=== PATIENT | female | born 1985 | race Caucasian/White ===

== ENCOUNTER 2024-03-03 15:35 | Inpatient (IN) | payer BC ==
[2024-03-03 17:46] VITALS: BMI 20.4
[2024-03-03] MEDS ORDERED: NALOXONE (NARCAN) HCL 4 MG/0.1 ML SPRAY NS PRN (18:46)
[2024-03-03] MEDS ORDERED: POLYETHYLENE GLYCOL (HEALTHYLAX) 3350 17 GM PACKET PO PRN (18:46)
[2024-03-03] MEDS ORDERED: guaiFENesin 600 MG TABLET.ER (FP) PO PRN (18:46)
[2024-03-03] MEDS ORDERED: NALOXONE HCL 0.4 MG/ML VIAL IM PRN (18:46)
[2024-03-03] MEDS ORDERED: ONDANSETRON *ODT* 4 MG TABLET SL PRN (18:46)
[2024-03-03] MEDS ORDERED: IBUPROFEN 400 MG TABLET (FP) PO PRN (18:46)
[2024-03-03] MEDS ORDERED: BENZOCAINE/MENTHOL (CHLORASEPTIC ) LOZENGE MM PRN (18:46)
[2024-03-03] MEDS ORDERED: LOPERAMIDE HCL 2 MG CAPSULE PO PRN (18:46)
[2024-03-03] MEDS ORDERED: BENZONATATE 200 MG CAPSULE PO PRN (18:46)
[2024-03-03] MEDS ORDERED: BISMUTH SUBSALICYLATE 524 MG/30 ML PO PRN (18:46)
[2024-03-03] MEDS ORDERED: MAGNESIUM HYDROX 2400MG/30ML ORAL SUSPENSION 30 ML CUP PO PRN (18:46)
[2024-03-03] MEDS ORDERED: ALBUTEROL SO4 HFA INHALER IH PRN (18:52)
[2024-03-03] MEDS ORDERED: methaDONE HCL 10 MG TABLET (FOR DETOX USE ONLY) ONE (19:08)
[2024-03-03] MEDS: methaDONE HCL 10 MG TABLET (FOR DETOX USE ONLY) PO ONE (19:17)
[2024-03-03] MEDS: IBUPROFEN 600 MG TABLET (FP) PO PRN (20:22)
[2024-03-03] MEDS: METHOCARBAMOL 500 MG TABLET PO PRN (20:22)
[2024-03-03] MEDS: THIAMINE 100 MG TABLET PO SCH (22:52)
[2024-03-03] MEDS: MELATONIN 5 MG TABLETS PO SCH (22:53)
[2024-03-04] MEDS: ACETAMINOPHEN 325 MG TABLET (FP) PO PRN (01:46)
[2024-03-04] MEDS: DICYCLOMINE HCL 10 MG CAPSULE PO PRN (04:53)
[2024-03-04] MEDS: hydrOXYzine PAMOATE 25 MG CAPSULE (FP) PO PRN (04:53)
[2024-03-04] MEDS: MAG HYDROX/AL HYDROX/SIMETH 30 ML UNIT-DOSE CUP PO PRN (04:54)
[2024-03-04] MEDS: LIDOCAINE 5% TOPICAL PATCH TP SCH (09:41)
[2024-03-04] MEDS: PRENATAL VITAMINS W/ FOLIC ACID TABLET (FP) PO SCH (09:41)
[2024-03-04] MEDS: GABAPENTIN 100 MG CAPSULE PO SCH (14:21)
[2024-03-04] MEDS: cloNIDine HCL 0.1 MG TABLET PO PRN (14:21)
[2024-03-04] MEDS: diazePAM 5 MG TABLET PO PRN (17:48)
[2024-03-04 19:23] VITALS: RESP 17
[2024-03-04 19:49] VITALS: BP 140/83; PULSE 98; TEMP 97.5
[2024-03-04] MEDS: traZODone HCL 50 MG TABLET (FP) PO SCH (22:19)
[2024-03-04] MEDS: LIDOCAINE PATCH REMOVAL MC SCH (22:19)
[2024-03-05] MEDS ORDERED: methaDONE HCL 10 MG TABLET (FOR DETOX USE ONLY) PO ONE (10:00)
[2024-03-07] MEDS ORDERED: methaDONE HCL 10 MG TABLET (FOR DETOX USE ONLY) PO ONE (10:00)
== END 2024-03-05 00:30 | disposition short-term general hospital (02) | DRG 773 ==
LOC: YASAS 15:35 → Y6N 18:47
PROVIDERS: ADMIT Allergy & Immunology; ATTEND Surgery
PROC: HZ2ZZZZ Detoxification Services for Substance Abuse Treatment (ICD-10-PCS; principal; 2024-03-03)
DX: F11.23 Opioid dependence with withdrawal (principal); F14.20 Cocaine dependence, uncomplicated; F17.210 Nicotine dependence, cigarettes, uncomplicated; F31.9 Bipolar disorder, unspecified; F43.10 Post-traumatic stress disorder, unspecified; F19.982 Other psychoactive substance use, unspecified with psychoactive substance-induced sleep disorder; F19.980 Other psychoactive substance use, unspecified with psychoactive substance-induced anxiety disorder; I10 Essential (primary) hypertension; E11.9 Type 2 diabetes mellitus without complications; J45.909 Unspecified asthma, uncomplicated; L90.5 Scar conditions and fibrosis of skin; R50.9 Fever, unspecified; R63.0 Anorexia; E78.5 Hyperlipidemia, unspecified; I25.10 Atherosclerotic heart disease of native coronary artery without angina pectoris; Z21 Asymptomatic human immunodeficiency virus [HIV] infection status; Z86.19 Personal history of other infectious and parasitic diseases; Z56.0 Unemployment, unspecified; Z59.00 Homelessness unspecified
CPT/HCPCS: 0241U-QW; 36415; 71045-TC-FY; 72126-TC; 72129-TC; 72132-TC; 80053; 80305; 80307; 81003; 81025; 83735; 84703; 85025; 85610; 85651; 85730; 86140; 86850; 86900; 86901; 87040; 87077; 87081; 87086; 87186; 93005; 93010; 99285-25; J0131; Q9967

== ENCOUNTER 2024-03-04 20:27 | Emergency (ER) | payer BC ==
[2024-03-04 20:48] VITALS: RESP 18; BMI 20.4
[2024-03-04 21:37] LABS: HEMATOCRIT 41.2 % (32.4-45.2); HEMOGLOBIN 14.3 GM/dL (10.7-15.3); MCH 30.8 pg (25.7-33.7); MCHC 34.7 g/dl (32.0-36.0); MEAN CELL VOLUME 88.8 fl (80-96); MEAN PLT VOLUME 7.6 fl (7.5-11.1); PLATELET COUNT 215 10^3/uL (134-434); RBC 4.64 M/mm3 (3.60-5.2); WHITE BLOOD COUNT 16.8 K/mm3 (4.0-10.0)
[2024-03-04 21:49] LABS: INR 1.21 (0.83-1.09); PROTHROMBIN TIME (PATIENT) 13.6 SEC (9.7-13.0)
[2024-03-04 21:52] LABS: ACTIVATED PTT 27.2 SECONDS (25.2-36.5)
[2024-03-04 22:22] LABS: ERYTHROCYTE SEDIMENTATION RATE 48 mm/hr (0-20); POTASSIUM 3.3 mmol/L (3.5-5.1)
[2024-03-04 22:24] LABS: CALCIUM 8.8 mg/dL (8.5-10.1)
[2024-03-04 22:26] LABS: ALBUMIN 2.5 g/dl (3.4-5.0); BLOOD UREA NITROGEN 6.1 mg/dL (7-18); MAGNESIUM 1.7 mg/dL (1.8-2.4)
[2024-03-04 22:27] LABS: ANISOCYTOSIS 0; MACROCYTOSIS 0
[2024-03-04 22:29] LABS: CREATININE 0.5 mg/dL (0.55-1.3); TOT PROT 6.8 g/dl (6.4-8.2)
[2024-03-04 22:47] LABS: BILIRUBIN,TOTAL 0.8 mg/dL (0.2-1)
[2024-03-04] MEDS ORDERED: MAGNESIUM SULFATE IN WATER 2 GM/50 ML IVPB IVPB ONE (23:41)
[2024-03-05] MEDS: MAGNESIUM SULF 50% (8.12 MEQ/2 ML-1 GM VIAL) IVPB ONE (00:10)
[2024-03-05] MEDS ORDERED: VANCOMYCIN 1 GRAM (PRE-DOCKED) 1,000 MG/250 ML BAG IVPB ONE (01:15)
[2024-03-05] MEDS: VANCOMYCIN 1,000 MG in DEXTROSE 5%-WATER - 250 ML IVPB ONE (01:16)
[2024-03-05 01:38] VITALS: PULSE 80
[2024-03-05] MEDS ORDERED: ACETAMINOPHEN INJECTION 100 ML IVPB ONE (02:15)
[2024-03-05] MEDS: ACETAMINOPHEN 1000 MG/100 ML BAG IVPB ONE (02:15)
[2024-03-05 02:23] LABS: PH,URINE 7.5 (5.0-8.0); URINE APPEARANCE CLEAR; URINE BILIRUBIN NEGATIVE (NEGATIVE); URINE COLOR YELLOW; URINE GLUCOSE (UA) NEGATIVE (NEGATIVE); URINE KETONE NEGATIVE (NEGATIVE); URINE LEUK ESTERASE NEGATIVE (NEGATIVE); URINE NITRITE NEGATIVE (NEGATIVE); URINE PROTEIN 1+ (NEGATIVE)
[2024-03-05 02:33] LABS: URINE RBC 36.2 /uL (0-23.9)
[2024-03-05 02:34] LABS: EPI CELLS 32.4 /uL (0-25.1); HYALINE CASTS 1.89 /uL (0-3.1); URINE BACTERIA 191.8 /uL (0-1359); URINE WBC 18.9 /uL (0-25.8)
[2024-03-05 04:27] VITALS: BP 122/76; TEMP 98.1
== END 2024-03-05 04:27 | disposition short-term general hospital (02) ==
LOC: JER 20:27
PROC: 3E03329 Introduction of Other Anti-infective into Peripheral Vein, Percutaneous Approach (ICD-10-PCS; principal; 2024-03-05)
PROC: 3E033NZ Introduction of Analgesics, Hypnotics, Sedatives into Peripheral Vein, Percutaneous Approach (ICD-10-PCS; 2024-03-05)
PROC: 3E033GC Introduction of Other Therapeutic Substance into Peripheral Vein, Percutaneous Approach (ICD-10-PCS; 2024-03-05)
DX: M54.50 Low back pain, unspecified (principal); M86.9 Osteomyelitis, unspecified; Q76.49 Other congenital malformations of spine, not associated with scoliosis; R50.9 Fever, unspecified; R63.0 Anorexia; M54.6 Pain in thoracic spine; Z20.822 Contact with and (suspected) exposure to COVID-19
CPT/HCPCS: 0241U-QW; 36415; 71045-TC-FY; 72126-TC; 72129-TC; 72132-TC; 80053; 81003; 83735; 84703; 85025; 85610; 85651; 85730; 86140; 86850; 86900; 86901; 87040; 87077; 87081; 87086; 87186; 93005; 93010; 99285-25; J0131; Q9967